=== PATIENT | male | born 1965 | race Caucasian/White ===

== ENCOUNTER → 2024-02-02 | Outpatient (CLI) | payer OTHER ==
--- NOTE | 2024-02-02 11:40 | XR ---
EXAMINATION TYPE: XR knee limited LT DATE OF EXAM: 02/02/2024 COMPARISON: NONE HISTORY: 58-year-old male R52, pain, OA TECHNIQUE: 2 views FINDINGS: There is some degenerative spurring in the medial compartment. Extensor mechanism appears i ntact. No significant joint effusion. Couple clips in the posterior medial lower thigh soft tissues. Some mild vascular calcifications also noted. No acute fracture, subluxation, dislocation on these 2 views. IMPRESSION: 2 views without acute osseous abnormality seen. Mild degenerative change in the medial compartment.
== END | disposition home or self-care (01) ==
LOC: RADXRMAIN 10:59
PROVIDERS: ATTEND Family Medicine
DX: M17.12 Unilateral primary osteoarthritis, left knee (principal)

== ENCOUNTER 2024-11-29 12:37 | Emergency (ER) | payer OTHER ==
[2024-11-29 12:54] VITALS: TEMP 99
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
[2024-11-29] MEDS: ACETAMINOPHEN TAB 325 MG TAB PO STA (13:39)
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
[2024-11-29 13:47] VITALS: RESP 20
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
[2024-11-29 15:06] VITALS: BP 149/93; PULSE 81
== END 2024-11-29 14:57 | disposition home or self-care (01) ==
LOC: EC 12:37
DX: Z04.1 Encounter for examination and observation following transport accident (principal); Z87.891 Personal history of nicotine dependence; Z88.8 Allergy status to other drugs, medicaments and biological substances; V49.40XA Driver injured in collision with unspecified motor vehicles in traffic accident, initial encounter
CPT/HCPCS: 70450; 71046; 72125; 72170; 99284